=== PATIENT | female | born 1970 | race Caucasian/White ===

== ENCOUNTER 2024-05-30 13:25 | Inpatient (IN) | payer OTHER, SELFPAY ==
[2024-05-30] VITALS (24 sets, daily range): BP systolic 144–206; BP diastolic 66–145; BMI 48.5; BMI 45.7
--- NOTE | 2024-05-30 07:20 | ED.GENMED ---
History of Present Illness
General
Chief Complaint: Breathing Problem
Source: patient
Exam Limitations: none
Time Seen by Provider: 05/30/24 07:00
Nursing documentation reviewed up to this point in time: agreed with
History of Present Illness
History of Present Illness:
pt i a 54 y/o F with h/o athma, smoking, sleep apnea, PAF n eliquis
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
here with 4 days cough, congestion, started in her sinuses and into her lungs
called her pcp 3 days ago and says that usually antibiotics and steroids 'knock it otu' but she has had worsening symptoms despite zithromax day 3 and medrol dose romeo day 3
she is wheeezing and very SOB with any liftlte activity
she has been using neb machine every 4 hours with mijnimal relief
thought she should come in last night btu says she did ok through the night but then got up to use the bthroom and was very winded
ulysses tightness but no pain
no fever/chills
some sore throat
did home covid which wa s neg
never had to be hospitalized for asthma bfore
still smokes 1/2 ppd
usually not in Afib, has had 2 episodes and usually feels it
Past History
Past History
ED Past Medical History: Arrthythmia ('Premature heart beats'), Asthma and HTN
ED Past Surgical History: Gynecological (Fibroid with embolization)
Social History
Tobacco: Smoker
Alcohol: Occasional
Drug: None
Personal:
Living: alone
Review of Systems
Review of Systems
Allergies reviewed?: Yes
All Other Systems: Not applicable
Phy Exam
Physical Exam
Physical Exam:
GENERAL: Alert , in no apparent distress
EYE: pupils equal and reactive
NECK: Supple
ENT: o/p clr, mmm.
CARDIAC: Regular rate and rhythm .
LUNGS: tachypenci mildly, wheeze end exp, prolonged expiration, diminished, ferquent cough;
ABDOMEN: Soft, without focal tenderness, no r/g, no cvat, normal bowel sounds
NEUROLOGICAL: Alert and oriented, no focal neuro deficits
SKIN: Warm and dry, skin intact.
MUSCULOSKELETAL: No edema, well perfused. neg brandi's sign
PSYCH: Normal and appropriate interaction.
Scores
Heart Failure Risk
Heart Failure Risk Score: Not Applicable
Course
Orders/Labs/Results
Orders:
Orders
05/30/24 07:19
Electrocardiogram (*1) Stat
Reason for Study: Other
Other Reason for Exam: pneumonia
Cardiac Monitoring- Treatment ONCE
EKG- Treatment ONCE
Ipratropium/Albuterol Sulfate [Duoneb] 3 ml INH R NOW ONE
MethylPREDNISolone PF [Solu-Medrol Pf] 125 mg IV NOW STA
CR Chest - 2 Views Urgent
Comment:
Reason For Exam: cough, wheezing, sob
05/30/24 07:36
COVID-19 Antigen Urgent
Source: Nasal Swab
Complete Blood Count/With Diff Urgent
Comprehensive Metabolic Panel Urgent
NT-proBNP Urgent
Influenza A+B Rapid Molecular Urgent
MERY Source: Nasal Swab
Specimen Description:
Abnormal Lab Results
05/30/24
07:36
MCHC 32.4 L g/dL
(33.0-37.0)
RDW 14.6 H %
(11.5-14.5)
Lymphocytes % 18.1 L %
(20.5-51.1)
Monocytes % 9.5 H %
(1.7-9.3)
Carbon Dioxide 32 H mmol/L
(22-30)
Creatinine 0.5 L mg/dL
(0.6-1.0)
Glucose 165 H mg/dl
(70-99)
05/30/24 07:36
05/30/24 07:36
Vital Signs
Initial and Last Documented VS:
Initial Vital Signs
Pulse Ox
97
05/30/24 06:06
Last Documented Vital Signs
Temp Pulse Resp BP Pulse Ox
36.6 C 83 23 167/88 95
05/30/24 06:08 05/30/24 08:15 05/30/24 08:15 05/30/24 08:00 05/30/24 08:15
MDM/Problems Addressed
Differential Diagnosis Includes:
flu, covid, pna, hypoxia, ,astham, copd
MDM/Problems Addressed:
room 7
corina alonso 54 y/o F asthma never intubated, copd/still smokes, sleep apnea, elevated BMI
uri sxs x 4 days, cough, wheezing, HUMPHRIES;
hypoxic with exertion here, pulse ox 87%
on 4L 95%
wheezing
labs FLU A +
otherwise unremarkable
cxr no obvious pna indep reviewed by me
pt given
steroids, nebs, and still dyspneic;
hypoxic with exertion;
require admission
will consider tamiflu because shes getting admitted, but > 48 hours
*Critical Care Note
Total Time (30-74mins, 75-104mins- exclusive of procedures): Not Applicable
ED Attending Note
-
Portions of this chart may have been created with voice recognition software.� Occasional wrong word or��sound alike� substitutions may have occurred due to the inherent limitations of voice recognition software.
Discharge Plan
Departure
Patient Disposition: Admit
Date of Disposition: 05/30/24
Time of Disposition: 09:06
Admit to: Med/Surg
Presentation/result/management discussed w/ accepting MD/DO: Hospitalist
Condition: Fair
Covid-19: Negative COVID-19
Discharge Problem:
Influenza A, Asthma, Hypoxia
Prescriptions:
No Action
budesonide-formoterol [Symbicort] 1 PUFF HFA aerosol inhaler
1 puff inhalation R BID
metformin 500 MG tablet
500 mg PO BID
glimepiride 1 MG tablet
1 mg PO DAILY
losartan 25 MG tablet
25 mg PO DAILY
fluoxetine 10 MG capsule
10 mg PO DAILY
verapamil 240 MG tablet extended release
240 mg PO DAILY Qty: 30 0RF
Eliquis 5 MG tablet
5 mg PO BID Qty: 60 0RF
ferrous sulfate 325 mg (65 mg iron) tablet
325 mg PO TID Qty: 60 0RF
docusate sodium [Colace] 100 mg capsule
100 mg PO BID Qty: 60 0RF
fluticasone propionate [Flonase] 50 mcg/actuation [place],Suspension
INTRANASAL PRN PRN (Reason: allergies)
medroxyprogesterone [Provera] 10 mg tablet
20 mg PO DAILY 5 Days Qty: 10 0RF
Referrals:
Myles Sanchez DO [Family Provider] -
Interventions
Interventions:
*Risk Screen - Suicide Last Done: 05/30/24 06:08
*General Assessment Last Done: 05/30/24 06:08
*Neglect/Abuse Screening Last Done: 05/30/24 06:08
ED- Fall Risk Assessment Last Done: 05/30/24 06:18
*ED COVID-19 Vaccine History Last Done: 05/30/24 06:18
ED- Cardiac Assessment Last Done: 05/30/24 06:18
ED- Pulmonary Assessment Last Done: 05/30/24 06:18
Discharge Date and Time
Print Language: ARGENTINE
[2024-05-30] MEDS: SOLU-MEDROL PF 125 MG IV (07:42)
[2024-05-30] MEDS: DUONEB 3 ML INH (07:42)
[2024-05-30 08:01] LABS: % Basophils 0.2 % (0-2); % Eosinophils 0.2 % (0-6); % Immature Granulocytes 0.3 % (0-0.5); % Lymphocytes 18.1 % (20.5-51.1); % Monocytes 9.5 % (1.7-9.3); % Neutrophils 71.7 % (42.2-75.2); Absolute Lymphocytes 1.2 10^3/uL (1.2-3.4); Absolute Monocytes 0.6 10^3/uL (0.1-0.6); Absolute Neutrophils 4.6 10^3/uL (1.4-6.5); Hematocrit 46.3 % (37.0-47.0); Mean Corp Hgb Conc. 32.4 g/dL (33.0-37.0); Mean Corpuscular Hgb 30.9 pg (27.0-31.0); Mean Corpuscular Volume 95.5 fL (81.0-99.0); Mean Platelet Volume 9.2 fL (7.4-10.4); Nucleated Red Blood Cells % 0 %; Platelet Count 252 10^3/uL (130-400); Red Blood Cell Count 4.85 10^6/uL (4.20-5.40); Red Cell Dist. Width 14.6 % (11.5-14.5); White Blood Cell Count 6.4 10^3/uL (4.8-10.8)
[2024-05-30 08:06] LABS: ALT (SGPT) 26 U/L (0-35); AST (SGOT) 21 U/L (14-36); Albumin 4.1 g/dl (3.5-5.0); Alkaline Phosphatase 115 U/L (38-126); Blood Urea Nitrogen 15 mg/dl (7-17); Calcium 8.8 mg/dl (8.4-10.2); Carbon Dioxide 32 mmol/L (22-30); Chloride 99 mmol/L (98-107); Estimated Creatinine Clearance > 125 ml/min; Glucose 165 mg/dl (70-99); Sodium 138 mmol/L (135-145); Total Bilirubin 0.4 mg/dl (0.2-1.3); Total Protein 7.2 g/dl (6.3-8.2); eGFR > 60.00
[2024-05-30 08:13] LABS: NT-proBNP 69.5 pg/ml
[2024-05-30 08:17] LABS: COVID-19 Antigen Negative (Negative)
[2024-05-30] MEDS: TAMIFLU 75 MG PO ×2 (10:17→18:06)
--- NOTE | 2024-05-30 12:24 | W.PN.HOSP.TC ---
Today's Communication/Plan
-
IV Decadron
insulin coverage
Assessment / Plan
Assessment / Plan
Acute multifactorial respiratory distress
Hx of asthma
onset age 16, last significant flare was almost 5 yrs ago
Acute Influenza A
morbid obesity
NIDDM
SHONDA on chronic CPAP at 13 cm
Hx of brain herniation
s/p PROVIDER SERVICE REPRESENTATIVE shunt 2018
P:IV Decadron
empiric abx
Tamiflu
sputum for C&S
Pulm consult
CPAP
see dictated note
Full code
Anticipated Discharge: > 48 hours
Subjective/Interval History
-
Date of Service: May 30, 2024
Respiratory distress worsening past 3 days
Objective Data
-
Labs:
Laboratory Results
05/30/24
07:36
WBC 6.4
Hgb 15.0
Hct 46.3
Plt Count 252
Sodium 138
Potassium 4.0
Chloride 99
Carbon Dioxide 32 H
BUN 15
Creatinine 0.5 L
Glucose 165 H
Calcium 8.8
Total Bilirubin 0.4
AST 21
ALT 26
Alkaline Phosphatase 115
Vital Signs:
Vital Signs
Temp Pulse Resp BP Pulse Ox
98.1 F 83 20 150/92 96
05/30/24 12:20 05/30/24 12:01 05/30/24 12:01 05/30/24 12:01 05/30/24 11:30
Review of Systems
-
History Source: Patient and Coordinated Provider
Constitutional: Denies Fever
Respiratory: Reports Cough, Trouble Breathing and Wheezing
Cardiac: Reports No Symptoms
Abdomen/GI: Reports No Symptoms
Genitourinary: Reports No Symptoms
Neuro: Reports No Symptoms
Physical Exam
-
General: Well Developed, Well Nourished, Respiratory Distress, Appears Chronically Ill and Morbidly Obese
HEENT: Normocephalic, Atraumatic and Moist Mucous Membranes
Respiratory: Wheezes (holoexpiratory wheeze on forced expiration)
Cardiac: Regular Rhythm and S1/S2
GI: Soft, Nontender and Nondistended
Musculoskeletal: No Clubbing, No Cyanosis and No Edema
Neuro: Awake, Alert and Oriented
[2024-05-30] MEDS: SYMBICORT 160/4.5 MCG INHALER 2 PUFF INH ×2 (14:01→20:35)
[2024-05-30 16:14] LABS: Glucose - Point of Care 315 mg/dl (70-99)
[2024-05-30] MEDS: DECADRON 4 MG IV (18:02)
[2024-05-30] MEDS: ELIQUIS 5 MG PO (18:05)
[2024-05-30] MEDS: PROZAC 10 MG PO (18:06)
[2024-05-30] MEDS: STERILE WATER FOR INJECTION 10 ML IV (18:45)
[2024-05-30] MEDS: ROCEPHIN 1000 MG IV (18:45)
[2024-05-30] MEDS: CALAN EXTENDED RELEASE 240 MG PO (19:06)
[2024-05-30] MEDS: COZAAR 25 MG PO (19:07)
[2024-05-30 19:09] LABS: Glucose - Point of Care 301 mg/dl (70-99)
--- NOTE | 2024-05-30 19:30 | PTCARENOTE ---
Pt arrived to [facility] from ED and ambulated independently from stretcher to bed. Pt is AAOx3 c/o complaints of pain at this time. Pt reports SOB when ambulating but not when lying in bed. VSS, patient oriented to room and call zhou within reach.
Plan of care reviewed with patient.
[2024-05-30] MEDS: NOVOLOG FLEXPEN-MODERATE RESISTANCE SC (19:34)
[2024-05-30 21:27] LABS: Glucose - Point of Care 256 mg/dl (70-99)
[2024-05-30] MEDS: NICODERM TRANSDERMAL TRANSDERM (22:06)
[2024-05-31] MEDS: DECADRON 4 MG IV ×4 (00:22→22:48)
[2024-05-31 07:40] VITALS: BP 246/114
[2024-05-31 07:59] LABS: Hematocrit 47.9 % (37.0-47.0); Hemoglobin 15.7 g/dL (12.0-16.0); Mean Corp Hgb Conc. 32.8 g/dL (33.0-37.0); Mean Corpuscular Hgb 31.2 pg (27.0-31.0); Mean Platelet Volume 9.4 fL (7.4-10.4); Platelet Count 280 10^3/uL (130-400); Red Blood Cell Count 5.04 10^6/uL (4.20-5.40); White Blood Cell Count 6.6 10^3/uL (4.8-10.8)
--- NOTE | 2024-05-31 08:03 | CON.PUL ---
Consultation
Consultation Request
Date/Time Consultation Requested: 05/31/2022-8 AM
Date/Time Consultation Performed: 05/31/2022-8:30 PM
Requesting Provider: Hospitalist
Performing Provider: Dr. Jeffers
Reason for Consultation: Shortness of breath
Medical History
-
Chief Complaint: Shortness of breath
History of Present Illness:
54-year-old female smoker with a history of asthma, likely COPD, brain herniation status post DRILL OPERATOR AUTOMATIC shunt in 2018 and obstructive sleep apnea on CPAP 13 cm who presented with increasing shortness of breath, wheezing, noted to have influenza and
pulmonary was consulted for asthma exacerbation 05/31/2024. Patient feels improved, she states that she saw a sampler first at [facility] for sleep apnea and asthma and admits she likely has 'COPD'. She continues to smoke under a pack a day. She
also is maintained on CPAP. She feels improved since she came. She is on oxygen. She is not on oxygen at home. She currently denies any chest pain but admits to some wheezing, nonproductive cough, dyspnea on exertion but no pleurisy, hemoptysis,
abdominal pain, focal weakness or increased lower extremity edema.
Past Medical History
Past Medical History: None (Asthma-likely COPD as well. Tobacco addiction/ongoing cigarette smoker. Brain herniation status post DRILL OPERATOR AUTOMATIC shunt 2018. SHONDA-CPAP 13 cm. Hypertension. Diabetes. Obesity. Hysterectomy 2022.)
Social History
Tobacco: Smoker (15-arcq-wcgi-ongoing less than a pack a day)
Drug: None
Living: With Family
Occupational Exposures: No known asbestos exposure
Environmental Exposures: No known tuberculosis exposure
Family History
Family History: Other (Mother-asthma)
Allergies / Home Medications
Allergies
Allergy/AdvReac Type Severity Reaction Status Date / Time
bee venom protein (honey bee) Allergy Swelling Verified 12/10/22 13:02
lisinopril Allergy cough Verified 12/10/22 13:02
mushroom Allergy Itching Verified 12/10/22 13:02
pollen extracts Allergy nasal Verified 12/10/22 13:02
congestion
Home Medications
�Medication �Instructions �Recorded �Confirmed �Last Taken �Type
budesonide-formoterol HFA 160 2 puff inhalation R BID 02/12/16 05/30/24 05/29/24 History
mcg-4.5 mcg/actuation aerosol Lung/breathing issues
inhaler (Symbicort)
fluoxetine 10 mg capsule 10 mg PO DAILY Mental 06/01/19 05/30/24 05/29/24 History
Health/Anxiety
losartan 25 mg tablet 25 mg PO DAILY Blood pressure 06/01/19 05/30/24 05/29/24 History
metformin 500 mg tablet 1,000 mg PO BID Diabetes 06/01/19 05/30/24 05/29/24 History
apixaban 5 mg tablet (Eliquis) 5 mg PO BID #60 tabs 06/02/19 05/30/24 05/29/24 Rx
verapamil 240 mg tablet,extended 240 mg PO DAILY #30 tabs 06/02/19 05/30/24 05/29/24 Rx
release
fluticasone propionate 50 2 spray intranasal DAILYPRN PRN 07/30/22 05/30/24 05/29/24 History
mcg/actuation nasal allergies
spray,suspension
albuterol sulfate 90 mcg/actuation 2 puff inhalation R QIDPRN PRN sob 05/30/24 05/30/24 05/29/24 History
aerosol inhaler
azithromycin 250 mg tablet 250 - 500 mg PO . DIRECTED 05/30/24 05/30/24 05/29/24 History
glimepiride 4 mg tablet 8 mg PO DAILY 05/30/24 05/30/24 05/29/24 History
ipratropium 0.5 mg-albuterol 3 mg 3 ml inhalation R Q6HPRN PRN sob 05/30/24 05/30/24 05/29/24 History
(2.5 mg base)/3 mL nebulization
soln
methylprednisolone 4 mg tablets in See Rx Instructions .Route .COMPLEX 05/30/24 05/30/24 05/29/24 History
a dose pack
Review of Systems
-
Unable to Obtain full review of systems at this time due to: Other (Per HPI)
Vitals / Labs / Diagnostic Testing
Vital Signs
Temp Pulse Resp BP Pulse Ox
97.9 F 56 18 144/66 96
05/30/24 23:21 05/30/24 23:21 05/30/24 23:21 05/30/24 23:21 05/30/24 23:21
Lab Data
05/31/24 07:32
Microbiology
05/30/24 07:36 Nasal Swab Influenza Types A & B (MIRI) - Final
Influenza A Positive, NAAT
Diagnostic Testing:
Physical Exam
-
Exam:
Well-nourished and well-developed in no apparent distress
HEENT-atraumatic, normocephalic, thick neck
Neck-supple, no JVD, no bruit
Heart-regular rate and rhythm-no murmurs, rubs or gallops
Chest with diminished breath sounds, prolonged expiratory time, expiratory wheezes and no crackles
Back without tenderness
Abdomen-soft, nontender, nondistended, no hepatosplenomegaly
Extremities-no cyanosis, clubbing, edema and good peripheral pulses
Integument-intact, no rashes, lesions or ecchymosis
Neurology-alert and oriented, nonfocal motor and sensory exam
Assessment
-
54-year-old female smoker with a history of asthma, likely COPD, brain herniation status post DRILL OPERATOR AUTOMATIC shunt in 2019 and obstructive sleep apnea on CPAP 13 cm who presented with increasing shortness of breath, wheezing, noted to have influenza and
pulmonary was consulted for asthma exacerbation 05/31/2024.
COPD/asthma overlap with acute exacerbation
Influenza A
Obstructive sleep apnea
Mild hyponatremia
Hyperglycemia
Conditions present prior to admission:
Asthma-likely COPD as well.
Tobacco addiction/ongoing cigarette smoker.
Brain herniation status post DRILL OPERATOR AUTOMATIC shunt 2019.
SHONDA-CPAP 13 cm.
Hypertension.
Diabetes.
Obesity.
Atrial fibrillation status post cardioversion-followed by Dr. Thompson
Hysterectomy 2022.
Plan
Acute decompensation likely due to influenza/infection exacerbating underlying COPD/asthma overlap
Supplemental oxygen as needed-attempt to wean to room air-does not have at home
Assess discharge supplemental oxygen needs prior to discharge
Mucolytic's
Aspiration precautions
Nebulizers
Symbicort 160/4.5 continues
Decadron 4 mg IV every 8 hours
CPAP 13 cm at nighttime
Check cultures
Sputum culture
Influenza A positive
Tamiflu continues
Empiric antibiotics-doxycycline as well as ceftriaxone
Monitor blood sugar
Insulin supplementation as needed
Smoking cessation counseling provided and will be ongoing
Nicotine patch
DVT prophylaxis-on Eliquis
Nutrition
Early mobilization
Outpatient pulmonary [id number] followed by [facility]-wants to transfer local-her mother is taking care of by [facility]-will make-Will need PFTs, yearly low-dose lung cancer screening CT, smoking cessation counseling, monitoring of CPAP use
Diagnostic data:
Chest x-ray 09/19/2021-right sided DRILL OPERATOR AUTOMATIC shunt, mild cardiomegaly
Chest x-ray 05/30/2024-cannot exclude mild CHF
Cardioversion 06/04/2020-successful uncomplicated cardioversion from atrial fibrillation to sinus rhythm
Data Reviewed
-
EKG: Report reviewed by me
Radiology: Report reviewed by me
CT Scan: Report reviewed by me
Labs: Labs reviewed by me
Old Records: Reviewed
Total Time Spent with Patient (in minutes): 55
[2024-05-31 08:12] LABS: Glucose - Point of Care 247 mg/dl (70-99)
[2024-05-31 08:28] LABS: Blood Urea Nitrogen 16 mg/dl (7-17); Calcium 9.5 mg/dl (8.4-10.2); Carbon Dioxide 29 mmol/L (22-30); Chloride 96 mmol/L (98-107); Estimated Creatinine Clearance > 125 ml/min; Glucose 272 mg/dl (70-99); Potassium 4.6 mmol/L (3.5-5.1); Sodium 134 mmol/L (135-145); eGFR > 60.00
[2024-05-31] MEDS: NICODERM TRANSDERMAL 7 MG TRANSDERM (08:33)
[2024-05-31] MEDS: ELIQUIS 5 MG PO ×2 (08:33→20:13)
[2024-05-31] MEDS: CALAN EXTENDED RELEASE 240 MG PO (08:33)
[2024-05-31] MEDS: TAMIFLU 75 MG PO ×2 (08:33→20:14)
[2024-05-31] MEDS: PROZAC 10 MG PO (08:33)
[2024-05-31] MEDS: COZAAR 25 MG PO ×2 (08:33→20:14)
[2024-05-31] MEDS: NOVOLOG FLEXPEN-MODERATE RESISTANCE 3 UNITS SC (08:35)
[2024-05-31 08:40] LABS: Glycohemoglobin (HgbA1c) 8.5 % (4.0-5.6)
[2024-05-31] MEDS: SYMBICORT 160/4.5 MCG INHALER 2 PUFF INH ×2 (08:43→20:53)
[2024-05-31 08:45] VITALS: BP 180/79
[2024-05-31 12:22] LABS: Glucose - Point of Care 261 mg/dl (70-99)
[2024-05-31] MEDS: NOVOLOG FLEXPEN-MODERATE RESISTANCE 5 UNITS SC ×2 (12:36→17:21)
[2024-05-31 15:00] VITALS: BP 179/90
--- NOTE | 2024-05-31 16:34 | CM ---
contract associate manager reviewed patient's chart and patient was admitted under isolation, patient is ambulating in room, patient lives alone is independent with adl's and ambulation, patient lives in a one story home with one step to enter, patient has CPAP
and Nebulizer in home.
PCP: Dr. Sanchez
Pharmacy: [facility].
Plan; Home when stable.
--- NOTE | 2024-05-31 17:13 | W.PN.HOSP.TC ---
Today's Communication/Plan
-
cautious tapering of steroids
will increase dose of anti-HTN
Assessment / Plan
Assessment / Plan
Acute multifactorial respiratory distress
Hx of asthma
onset age 16, last significant flare was almost 5 yrs ago
Acute Influenza A
HTN
BP running 144-246/66-114
remains on Verapamil 240 daily and Cozaar 25 daily
will increase dose of both meds slightly
morbid obesity
NIDDM
glu 247-315 on SSI coverage
Cigarette consumption ongoing
though pt states less than she use to smoke
SHONDA on chronic CPAP at 13 cm
Was requiring oxygen
now on room air with SaO2 95%
Hx of brain herniation
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
P:IV Decadron
empiric abx
Tamiflu
sputum for C&S, ordered but not obtained as pt unable to produce
Pulm consult appreciated
CPAP
Pt 'asking' to be dc soon. Explained that if steroids tapered too quickly, she will flare back up. But if steroids are continued she will require insulin coverage. That is important to manage correctly. She reinforced her desire to be dc [facility]
see dictated note
Full code
Anticipated Discharge: > 48 hours
Subjective/Interval History
-
Date of Service: May 31, 2024
Tells me she is already feeling better and is asking when she can go home
Objective Data
-
Labs:
Laboratory Results
05/31/24
07:32
WBC 6.6
Hgb 15.7
Hct 47.9 H
Plt Count 280
Sodium 134 L
Potassium 4.6
Chloride 96 L
Carbon Dioxide 29
BUN 16
Creatinine 0.5 L
Glucose 272 H
Calcium 9.5
Vital Signs:
Vital Signs
Temp Pulse Resp BP Pulse Ox
98.2 F 52 20 179/90 95
05/31/24 15:00 05/31/24 15:00 05/31/24 15:00 05/31/24 15:00 05/31/24 15:00
I&O
05/30/24 05/31/24 06/01/24
06:59 06:59 06:59
Intake Total 480 / 480
Balance 480 / 480
Review of Systems
-
History Source: Patient and Coordinated Provider
Constitutional: Denies Fever
Respiratory: Reports Cough, Trouble Breathing and Wheezing
Cardiac: Reports No Symptoms
Abdomen/GI: Reports No Symptoms
Genitourinary: Reports No Symptoms
Neuro: Reports No Symptoms
Physical Exam
-
General: Well Developed, Well Nourished, Respiratory Distress, Appears Chronically Ill and Morbidly Obese
HEENT: Normocephalic, Atraumatic and Moist Mucous Membranes
Respiratory: Wheezes (coarse holoexpiratory wheeze on forced expiration, significant improvement in air movement)
Cardiac: Regular Rhythm and S1/S2
GI: Soft, Nontender and Nondistended
Musculoskeletal: No Clubbing, No Cyanosis and No Edema
Neuro: Awake, Alert and Oriented
[2024-05-31 17:19] LABS: Glucose - Point of Care 285 mg/dl (70-99)
[2024-05-31] MEDS: ROCEPHIN 1000 MG IV (17:22)
[2024-05-31] MEDS: STERILE WATER FOR INJECTION 10 ML IV (17:22)
[2024-05-31] MEDS: CALAN EXTENDED RELEASE 120 MG PO (17:43)
[2024-05-31 21:23] LABS: Glucose - Point of Care 284 mg/dl (70-99)
[2024-05-31] MEDS: ROBITUSSIN DM 5 ML PO (22:47)
[2024-05-31 23:16] VITALS: BP 190/93
[2024-05-31] MEDS: APRESOLINE 5 MG IV (23:41)
[2024-06-01 03:55] VITALS: BP 172/93
[2024-06-01 07:00] VITALS: BP 181/85
[2024-06-01 07:10] LABS: Glucose - Point of Care 303 mg/dl (70-99)
[2024-06-01] MEDS: NOVOLOG FLEXPEN-MODERATE RESISTANCE 7 UNITS SC ×2 (08:12→17:17)
[2024-06-01] MEDS: DECADRON 4 MG IV ×2 (08:13→19:35)
[2024-06-01] MEDS: TAMIFLU 75 MG PO ×2 (08:13→19:35)
[2024-06-01] MEDS: CALAN EXTENDED RELEASE 240 MG PO (08:13)
[2024-06-01] MEDS: COZAAR 25 MG PO ×2 (08:14→19:35)
[2024-06-01] MEDS: NICODERM TRANSDERMAL TRANSDERM (08:14)
[2024-06-01] MEDS: PROZAC 10 MG PO (08:14)
[2024-06-01] MEDS: ELIQUIS 5 MG PO ×2 (08:14→19:34)
[2024-06-01] MEDS: SYMBICORT 160/4.5 MCG INHALER 2 PUFF INH ×2 (08:51→19:15)
--- NOTE | 2024-06-01 10:10 | W.PN.PUL.V3 ---
Today's Communication / Plan
-
Increase activity.
Decrease Decadron.
Changed to prednisone tomorrow and hopefully discharge
CPAP at night. Excited outpatient pulmonary follow-up
Assessment
-
54-year-old female smoker with a history of asthma, likely COPD, brain herniation status post DOG SHOW JUDGE shunt in 2019 and obstructive sleep apnea on CPAP 13 cm who presented with increasing shortness of breath, wheezing, noted to have influenza and
pulmonary was consulted for asthma exacerbation 05/31/2024.
COPD/asthma overlap with acute exacerbation
Influenza A
Obstructive sleep apnea
Mild hyponatremia
Hyperglycemia
Conditions present prior to admission:
Asthma-likely COPD as well.
Tobacco addiction/ongoing cigarette smoker.
Brain herniation status post DOG SHOW JUDGE shunt 2018.
SHONDA-CPAP 13 cm.
Hypertension.
Diabetes.
Obesity.
Atrial fibrillation status post cardioversion-followed by Dr. Thompson
Hysterectomy 2022.
Plan
Acute decompensation likely due to influenza/infection exacerbating underlying COPD/asthma overlap
Supplemental oxygen as needed-attempt to wean to room air-does not have at home
Assess discharge supplemental oxygen needs prior to discharge
Mucolytic's
Aspiration precautions
Nebulizers
Symbicort 160/4.5 continues
Decadron 4 mg IV every 8 hours-Decreased to every 12 hours and changed to prednisone 06/02/24
CPAP 13 cm at nighttime
Check cultures
Sputum culture
Influenza A positive
Tamiflu continues
Empiric antibiotics-doxycycline as well as ceftriaxone
Monitor blood sugar
Insulin supplementation as needed
Smoking cessation counseling provided and will be ongoing
Nicotine patch
DVT prophylaxis-on Eliquis
Nutrition
Early mobilization.
Patient will be changed to prednisone 06/02/24 and will likely be stable for discharge from a pulmonary perspective if Blood sugars adequately managed
Outpatient pulmonary [id number]-[id number] followed by [facility]-wants to transfer local-her mother is taking care of by [facility]-will make-Will need PFTs, yearly low-dose lung cancer screening CT, smoking cessation counseling, monitoring of CPAP use
Diagnostic data:
Chest x-ray 09/19/2021-right sided DOG SHOW JUDGE shunt, mild cardiomegaly
Chest x-ray 05/30/2024-cannot exclude mild CHF
Cardioversion 06/04/2020-successful uncomplicated cardioversion from atrial fibrillation to sinus rhythm
Subjective Data
-
Date of Service:
Date of Service: June 01, 2024
Chief Complaint: Pulmonary Follow Up and Dyspnea Follow Up
Subjective:
Feels better, no complaints shortness of breath at rest, tolerating CPAP, minimal cough, no abdominal pain
Review of Systems
General: Other (per HPI)
Objective Data
Data Reviewed
Vital Signs / I&O:
Vital Signs
Temp Pulse Resp BP Pulse Ox
97.7 F 48 16 181/85 96
06/01/24 07:00 06/01/24 07:00 06/01/24 09:00 06/01/24 07:00 06/01/24 09:28
Intake and Output
05/31/24 06/01/24 06/02/24
06:59 06:59 06:59
Intake Total 480 / 480 1440 / 1440
Balance 480 / 480 1440 / 1440
SaO2: 96
Nasal Cannula flow liters per minute: 2
Physical Exam
General: Respiratory Distress (n) and Comfortable
HEENT: Normocephalic, Anicteric and Moist Mucous Membranes
Cardiovascular: Regular Rhythm
Respiratory: Wheeze, Crackles (n), Rhonchi (n), Non-Labored Respirations, Accessory Resp Muscle Use (n) and Stridor (n)
GI: Soft, Non Distended and Non Tender
Neurology: Awake, Alert and No Motor Deficits
Skin: Warm, Good Color, Cyanosis (n), Jaundice (n) and Rash (n)
Labs/Micro/Reports
Lab Data
05/31/24 07:32
05/31/24 07:32
Microbiology
05/31/24 06:05 Nose MRSA Screen - Final
No Methicillin Resistant Staphylococcus aureus isolated.
05/30/24 07:36 Nasal Swab Influenza Types A & B (MIRI) - Final
Influenza A Positive, NAAT
[2024-06-01 11:52] LABS: Glucose - Point of Care 271 mg/dl (70-99)
[2024-06-01] MEDS: NOVOLOG FLEXPEN-MODERATE RESISTANCE 5 UNITS SC (11:54)
[2024-06-01 15:04] VITALS: BP 171/84
--- NOTE | 2024-06-01 15:20 | CM ---
Chart reviewed and patient is currently off oxygen, child welfare caseworker will follow for discharge planning needs.
[place]; Patient to return to home at discharge.
[2024-06-01 17:00] LABS: Glucose - Point of Care 339 mg/dl (70-99)
[2024-06-01] MEDS: CALAN EXTENDED RELEASE 120 MG PO (17:16)
[2024-06-01] MEDS: STERILE WATER FOR INJECTION 10 ML IV (17:16)
[2024-06-01] MEDS: ROCEPHIN 1000 MG IV (17:16)
--- NOTE | 2024-06-01 18:49 | W.PN.HOSP.TC ---
Today's Communication/Plan
-
decrease steroids to Prednisone 50 mg daily
Assessment / Plan
Assessment / Plan
Acute multifactorial respiratory distress
much improved
Hx of asthma
onset age 16, last significant flare was almost 5 yrs ago
Acute Influenza A
HTN
BP running 144-246/66-114
remains on Verapamil 240 daily and Cozaar 25 daily
increased dose of both meds slightly to Verapamil 240/120 and Cozaar 25 mg bid
BP remains elevated at 170/84 range
morbid obesity
NIDDM
glu 247-315 on SSI coverage. Glu in 284-339 range
Hga1c 8.5%. Will begin tapering steroids
Cigarette consumption ongoing
though pt states less than she use to smoke
SHONDA on chronic CPAP at 13 cm
Was requiring oxygen
now on room air with SaO2 95%
Hx of brain herniation
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
P:IV Decadron
empiric abx
Tamiflu
sputum for C&S, ordered but not obtained as pt unable to produce
Pulm consult appreciated
CPAP
Pt 'asking' to be dc soon. Explained that if steroids tapered too quickly, she will flare back up. But if steroids are continued she will require insulin coverage. That is important to manage correctly. She reinforced her desire to be dc [facility]
Pt remains very desired to be dc soon, am concerned about steroids in pt with NIDDM requiring insulin coverage on steroids. Reviewed this with her, but she remains very oriented towards dc in near future
see dictated note
Full code
Anticipated Discharge: 24 - 48 hours
Subjective/Interval History
-
Date of Service: June 01, 2024
Breathing better, asking when can go home
Objective Data
-
Vital Signs:
Vital Signs
Temp Pulse Resp BP Pulse Ox
97.6 F 49 20 171/84 94
06/01/24 15:04 06/01/24 15:04 06/01/24 15:04 06/01/24 15:04 06/01/24 15:04
I&O
05/31/24 06/01/24 06/02/24
06:59 06:59 06:59
Intake Total 480 / 480 1440 / 1440 240 / 240
Balance 480 / 480 1440 / 1440 240 / 240
Review of Systems
-
History Source: Patient and Coordinated Provider
Constitutional: Denies Fever
EENT: Reports No Symptoms Reported
Respiratory: Reports Trouble Breathing (better) and Wheezing (better)
Cardiac: Reports No Symptoms
Abdomen/GI: Reports No Symptoms
Musculoskeletal: Reports No Symptoms
Physical Exam
-
General: Well Developed, Well Nourished and No Apparent Distress
HEENT: Normocephalic, Atraumatic and Moist Mucous Membranes
Respiratory: Wheezes (minimal course wheeze, breathing markedly improved)
Cardiac: Regular Rhythm and S1/S2
GI: Soft, Nontender and Nondistended
Musculoskeletal: No Clubbing, No Cyanosis and No Edema
[2024-06-01 21:35] LABS: Glucose - Point of Care 275 mg/dl (70-99)
[2024-06-01 23:42] VITALS: BP 171/76
[2024-06-02 07:00] VITALS: BP 199/90
[2024-06-02 07:08] LABS: Glucose - Point of Care 280 mg/dl (70-99)
[2024-06-02] MEDS: SYMBICORT 160/4.5 MCG INHALER 2 PUFF INH (07:46)
[2024-06-02] MEDS: CALAN EXTENDED RELEASE 240 MG PO (08:56)
[2024-06-02] MEDS: PROZAC 10 MG PO (08:56)
[2024-06-02] MEDS: DELTASONE 50 MG PO (08:56)
[2024-06-02] MEDS: TAMIFLU 75 MG PO (08:56)
[2024-06-02] MEDS: ELIQUIS 5 MG PO (08:56)
[2024-06-02] MEDS: COZAAR 25 MG PO (08:56)
[2024-06-02] MEDS: NOVOLOG FLEXPEN-MODERATE RESISTANCE 5 UNITS SC ×2 (08:57→12:45)
[2024-06-02] MEDS: NICODERM TRANSDERMAL TRANSDERM (08:57)
--- NOTE | 2024-06-02 10:38 | CM ---
Chart reviewed and plan is for patient to return to home when stable, patient is anxious for discharge, patient is on room air, steroid wean.
Plan; Home when stable no needs.
[2024-06-02 11:48] LABS: Glucose - Point of Care 257 mg/dl (70-99)
--- NOTE | 2024-06-02 14:32 | W.PN.PUL.V3 ---
Today's Communication / Plan
-
.
Prednisone taper.
Increase activity.
Outpatient pulmonary/sleep disorders follow-up
Assessment
-
54-year-old female smoker with a history of asthma, likely COPD, brain herniation status post [employer] shunt in 2019 and obstructive sleep apnea on CPAP 13 cm who presented with increasing shortness of breath, wheezing, noted to have influenza and
pulmonary was consulted for asthma exacerbation 05/31/2024.
COPD/asthma overlap with acute exacerbation
Influenza A
Obstructive sleep apnea
Mild hyponatremia
Hyperglycemia
Conditions present prior to admission:
Asthma-likely COPD as well.
Tobacco addiction/ongoing cigarette smoker.
Brain herniation status post [employer] shunt 2018.
SHONDA-CPAP 13 cm.
Hypertension.
Diabetes.
Obesity.
Atrial fibrillation status post cardioversion-followed by Dr. Thompson
Hysterectomy 2022.
Plan
Acute decompensation likely due to influenza/infection exacerbating underlying COPD/asthma overlap
Supplemental oxygen as needed-attempt to wean to room air-does not have at home-Weaned to room air.
Does not require supplemental option at time of discharge-room air 94% saturation
Mucolytic's
Aspiration precautions
Nebulizers
Symbicort 160/4.5 continues.
Change steroids to prednisone with slow taper
CPAP 13 cm at nighttime
Check cultures
Sputum culture
Influenza A positive
Tamiflu continues
Empiric antibiotics-doxycycline as well as ceftriaxone
Monitor blood sugar
Insulin supplementation as needed
Smoking cessation counseling provided and will be ongoing
Nicotine patch
DVT prophylaxis-on Eliquis
Nutrition
Early mobilization.
Patient changed to prednisone 06/02/24 and stable for discharge from a pulmonary perspective if Blood sugars adequately managed
Outpatient pulmonary [id number] followed by [facility]-wants to transfer local-her mother is taking care of by [facility]-will make-Will need PFTs, yearly low-dose lung cancer screening CT, smoking cessation counseling, monitoring of CPAP use
Diagnostic data:
Chest x-ray 09/19/2021-right sided [employer] shunt, mild cardiomegaly
Chest x-ray 05/30/2024-cannot exclude mild CHF
Cardioversion 06/04/2020-successful uncomplicated cardioversion from atrial fibrillation to sinus rhythm
Subjective Data
-
Date of Service:
Date of Service: June 02, 2024
Chief Complaint: Pulmonary Follow Up and Dyspnea Follow Up
Subjective:
Tolerating CPAP, less short of breath, still with some wheezing, no chest pain, blood sugar issues persist, no abdominal pain
Review of Systems
General: Other ( per HPI)
Objective Data
Data Reviewed
Vital Signs / I&O:
Vital Signs
Temp Pulse Resp BP Pulse Ox
97.5 F 87 16 199/90 94
06/02/24 07:00 06/02/24 07:51 06/02/24 07:51 06/02/24 07:00 06/02/24 08:00
Intake and Output
06/01/24 06/02/24 06/03/24
06:59 06:59 06:59
Intake Total 1440 / 1440 720 / 720
Balance 1440 / 1440 720 / 720
SaO2: 94
Nasal Cannula flow liters per minute: 2
Physical Exam
General: Respiratory Distress (n) and Comfortable
HEENT: Normocephalic, Anicteric and Moist Mucous Membranes
Cardiovascular: Regular Rhythm
Respiratory: Wheeze, Crackles (n), Rhonchi (n), Non-Labored Respirations, Accessory Resp Muscle Use (n) and Stridor (n)
GI: Soft, Non Distended and Non Tender
Neurology: Awake, Alert and No Motor Deficits
Skin: Warm, Good Color, Cyanosis (n), Jaundice (n) and Rash (n)
Labs/Micro/Reports
Lab Data
05/31/24 07:32
05/31/24 07:32
Microbiology
05/31/24 06:05 Nose MRSA Screen - Final
No Methicillin Resistant Staphylococcus aureus isolated.
--- NOTE | 2024-06-02 14:51 | W.PN.HOSP.TC ---
Today's Communication/Plan
-
dc now
Assessment / Plan
Assessment / Plan
Acute multifactorial respiratory distress
much improved, resolved
Hx of asthma
onset age 16, last significant flare was almost 5 yrs ago
Acute Influenza A
HTN
BP running 144-246/66-114
remains on Verapamil 240 daily and Cozaar 25 daily
increased dose of both meds slightly to Verapamil 240/120 and Cozaar 25 mg bid
BP remains elevated at 170/84 range
morbid obesity
NIDDM
glu 247-315 on SSI coverage. Glu in 284-339 range
Hga1c 8.5%. Will begin tapering steroids
Cigarette consumption ongoing
though pt states less than she use to smoke
SHONDA on chronic CPAP at 13 cm
Was requiring oxygen
now on room air with SaO2 95%
Hx of brain herniation
s/p [employer] shunt 2018
P:dc on rapid Prednisone taper
empiric abx
Tamiflu
sputum for C&S, ordered but not obtained as pt unable to produce
Pulm consult appreciated
CPAP
dc to home
see dictated note
More than 30 minutes spent in discharge including
Final examination of the patient
Summarizing hospital stay
Instructions for continuing care to all relevant caregivers
Preparation of discharge records, prescriptions, and referral forms
Total time spent (in minutes): 45
Full code
Anticipated Discharge: Today
Subjective/Interval History
-
Date of Service: June 02, 2024
breathing better
Objective Data
-
Vital Signs:
Vital Signs
Temp Pulse Resp BP Pulse Ox
97.5 F 87 16 199/90 94
06/02/24 07:00 06/02/24 07:51 06/02/24 07:51 06/02/24 07:00 06/02/24 14:32
I&O
06/01/24 06/02/24 06/03/24
06:59 06:59 06:59
Intake Total 1440 / 1440 720 / 720
Balance 1440 / 1440 720 / 720
Review of Systems
-
History Source: Patient and Coordinated Provider
Constitutional: Denies Fever
EENT: Reports No Symptoms Reported
Respiratory: Reports Trouble Breathing (better) and Wheezing (better)
Cardiac: Reports No Symptoms
Abdomen/GI: Reports No Symptoms
Musculoskeletal: Reports No Symptoms
Physical Exam
-
General: Well Developed, Well Nourished and No Apparent Distress
HEENT: Normocephalic, Atraumatic and Moist Mucous Membranes
Respiratory: Negative Wheezes (resolved, totally clear)
Cardiac: Regular Rhythm and S1/S2
GI: Soft, Nontender and Nondistended
Musculoskeletal: No Clubbing, No Cyanosis and No Edema
[2024-06-02 15:41] VITALS: BP 173/104
--- NOTE | 2024-06-02 18:30 | W.DS.TRANS ---
DC Summary - [employer]
-
Discharge Instructions:
Discharge Diagnosis/Procedures Influenza/Asthma
Diet Diabetic, Carb Controlled
Activity As tolerated
Driving Restrictions No driving for 24 hours
Bathing Restrictions None
Instructions:
Stand-Alone Forms:
Changes to Home Medications: Yes
Discharge Medications:
DC Medications w/original date entered in [employer]
budesonide-formoterol HFA 160 mcg-4.5 mcg/actuation aerosol inhaler (Symbicort) 2 puff inhalation R BID Lung/breathing issues 02/12/16
fluoxetine 10 mg capsule 10 mg PO DAILY Mental Health/Anxiety 06/01/19
losartan 25 mg tablet 25 mg PO DAILY Blood pressure 06/01/19
metformin 500 mg tablet 1,000 mg PO BID Diabetes 06/01/19
apixaban 5 mg tablet (Eliquis) 5 mg PO BID #60 tabs 06/02/19
verapamil 240 mg tablet,extended release 240 mg PO DAILY #30 tabs 06/02/19
fluticasone propionate 50 mcg/actuation nasal spray,suspension 2 spray intranasal DAILYPRN PRN allergies 07/30/22
albuterol sulfate 90 mcg/actuation aerosol inhaler 2 puff inhalation R QIDPRN PRN sob 05/30/24
glimepiride 4 mg tablet 8 mg PO DAILY Diabetes 05/30/24
cefuroxime axetil 500 mg tablet 500 mg PO BID 7 days #14 tabs 06/02/24
oseltamivir 75 mg capsule 75 mg PO BID #10 caps 06/02/24
prednisone 10 mg tablet 10 mg PO DIRECTED #14 tabs 06/02/24
Home Medication Changes
Prednisone 40 mg qd x 2 days, then 20 mg qd x 2days, then 10 mg qd x 2days, then stop
Ceftin bid x 7 days
Tamiflu for 5 more doses has been ordered
She does need her BP followed with possible increase in medication dosing depending on results
Pending Results: No
== END 2024-06-02 16:02 | disposition home or self-care (01) | DRG 194 ==
LOC: 4 WEST ACU 13:25
PROVIDERS: Physician Assistant; ADMITTING PHYSICIAN Internal Medicine; CONSULT PHYSICIAN Internal Medicine Critical Care Medicine; EMERGENCY PHYSICIAN Student in an Organized Health Care Education/Training Program; FAMILY PHYSICIAN Family Medicine
DX: J10.1 Influenza due to other identified influenza virus with other respiratory manifestations (principal); E87.1 Hypo-osmolality and hyponatremia; J44.0 Chronic obstructive pulmonary disease with (acute) lower respiratory infection; J45.901 Unspecified asthma with (acute) exacerbation; Z11.52 Encounter for screening for COVID-19; E66.01 Morbid (severe) obesity due to excess calories; E11.65 Type 2 diabetes mellitus with hyperglycemia; F17.210 Nicotine dependence, cigarettes, uncomplicated; I48.0 Paroxysmal atrial fibrillation; Z59.89 Other problems related to housing and economic circumstances
CPT/HCPCS: 71046; 80048; 80053; 82962; 83036; 83880; 85025; 85027; 87070; 87502; 87811; 93005; 94640; 96374; 99285

== ENCOUNTER → 2024-07-13 09:31 | Outpatient (REF) | payer OTHER, SELFPAY | LOC: HWRAD 09:31 | PROVIDERS: ATTENDING PHYSICIAN Student in an Organized Health Care Education/Training Program; FAMILY PHYSICIAN Family Medicine | DX: Z79.899 Other long term (current) drug therapy (principal); D48.5 Neoplasm of uncertain behavior of skin; D17.39 Benign lipomatous neoplasm of skin and subcutaneous tissue of other sites | CPT/HCPCS: 76536 ==

== ENCOUNTER → 2024-08-18 10:09 | Outpatient (REF) | payer OTHER, SELFPAY | LOC: RCS 10:09 | PROVIDERS: ATTENDING PHYSICIAN Internal Medicine Cardiovascular Disease; FAMILY PHYSICIAN Family Medicine | DX: I48.0 Paroxysmal atrial fibrillation (principal); R00.2 Palpitations | CPT/HCPCS: 93225; 93226 ==

== ENCOUNTER → 2024-09-02 12:24 | Outpatient (REF) | payer OTHER, SELFPAY | LOC: HWRAD 12:24 | PROVIDERS: ATTENDING PHYSICIAN Internal Medicine Critical Care Medicine; FAMILY PHYSICIAN Family Medicine | DX: F17.210 Nicotine dependence, cigarettes, uncomplicated (principal) | CPT/HCPCS: 71271 ==

== ENCOUNTER → 2024-09-20 12:35 | Outpatient (REF) | payer OTHER, SELFPAY ==
--- NOTE | 2024-09-20 13:47 | CARDSERVLU ---
Echocardiogram with [facility] completed after protocol screening completed. Allergies verified.
Patent IV site: __Left AC___
IV site flushed with 0.9% NaCl pre and post administration.
Diluted bolus method utilized to enhance visualization of ventricular dolan.
Total volume given: __4.0__ mL
Patient tolerated all procedures well without complications.
== END ==
LOC: RCS 12:35
PROVIDERS: ATTENDING PHYSICIAN Internal Medicine Cardiovascular Disease; FAMILY PHYSICIAN Family Medicine
DX: I48.0 Paroxysmal atrial fibrillation (principal); R06.09 Other forms of dyspnea; R00.2 Palpitations
CPT/HCPCS: 93306; Q9950